=== PATIENT | female | born 1965 | race African-American/Black ===

== ENCOUNTER 2018-10-03 05:26 | Inpatient (IN) | payer MEDICARE, MEDICAID ==
[~2018-10-03 05:26] MED LIST: BUPIVACAINE INJ/PF LIPOSOME/PF 266 MG/20 ML SDV INJ PRN; CEFAZOLIN INJ 1 GM VIAL IV PRN; IBUPROFEN 800 MG in NORMAL SALINE 250 ML IV PRN; LACTATED RINGERS 1000 ML IV PRN; LIDOCAINE 0.5% INJ-PF (5 MG/ML) 50 ML SDV SUBCUT PRN; OXYCODONE HCL SR 10 MG TABLET PO PRN; PANTOPRAZOLE SODIUM 20 MG TABLET.DR PO PRN; VANCOMYCIN HCL 1,000 MG in DEXTROSE 5%-WATER 250 ML IV PRN
[2018-10-03] MEDS ORDERED: PANTOPRAZOLE SODIUM 20 MG TABLET.DR PO ONE (05:36)
[2018-10-03] MEDS ORDERED: OXYCODONE HCL SR 10 MG TABLET PO ONE (05:36)
[2018-10-03] MEDS ORDERED: CEFAZOLIN INJ 1 GM VIAL ONE (05:37)
[2018-10-03] MEDS ORDERED: MIDAZOLAM 2 MG/2 ML INJ ONE (06:53)
[2018-10-03] MEDS ORDERED: PROPOFOL INJ 200 MG/20 ML VIAL IV ONE (06:53)
[2018-10-03] MEDS ORDERED: TRANEXAMIC ACID INJ/PF 1,000 MG/10 ML SDV IV ONE ×3 (06:53→10:00)
[2018-10-03] MEDS ORDERED: ONDANSETRON HCL INJ/PF 4 MG/2 ML SDV ONE (06:53)
[2018-10-03] MEDS ORDERED: BUPIVACAINE HCL 0.25% /EPINEPHRINE INJ/PF 30 ML SDV ONE (07:09)
[2018-10-03] MEDS ORDERED: THROMBIN (BOVINE) TOPICAL 20000 UNIT VIAL ONE (07:09)
[2018-10-03] MEDS ORDERED: FENTANYL CITRATE INJ/PF 250 MCG/5 ML AMPULE ONE (07:16)
[2018-10-03] MEDS ORDERED: HYDROMORPHONE HCL INJ/PF 2 MG/ML AMPULE ONE (07:17)
[2018-10-03] MEDS ORDERED: MEPERIDINE HCL/PF INJ 25 MG/1 ML DISP.SYRIN IV PRN (07:46)
[2018-10-03] MEDS ORDERED: DIPHENHYDRAMINE HCL 50 MG/ML VIAL IV PRN ×2 (07:46→08:30)
[2018-10-03] MEDS ORDERED: FENTANYL CITRATE INJ/PF 100 MCG/2 ML AMPUL IV PRN ×3 (07:46)
[2018-10-03] MEDS ORDERED: PROMETHAZINE HCL INJ 25 MG/1 ML VIAL IV PRN (07:46)
[2018-10-03] MEDS ORDERED: MORPHINE SULFATE 10 MG/ML INJ IV PRN ×4 (07:46→08:30)
[2018-10-03] MEDS ORDERED: ONDANSETRON HCL INJ/PF 4 MG/2 ML SDV IV PRN (08:30)
[2018-10-03] MEDS ORDERED: RINGERS SOLUTION,LACTATED 1,000 ML IV PRN (08:30)
[2018-10-03] MEDS ORDERED: MAG HYDROX/AL HYDROX/SIMETH SUSP 30 ML UDCUP PO PRN (08:30)
[2018-10-03] MEDS ORDERED: ZOLPIDEM TARTRATE 5 MG TABLET PO PRN (08:30)
[2018-10-03] MEDS ORDERED: ONDANSETRON 4 MG TAB.RAPDIS PO PRN (08:30)
--- NOTE | 2018-10-03 08:36 | Operative Report ---
Operative Report DATE OF SURGERY: 10/03/18 PREOPERATIVE DIAGNOSIS: Left knee arthritis OPERATION: Left knee arthroplasty SURGEON: KRISTY POSEY ANESTHESIA: GA TISSUE REMOVED OR ALTERED: Bone to pathology ESTIMATED BLOOD LOSS: 150 cc secondary to tourniquet malfunction PROCEDURE: Implants used: Femur: [place] triathlon size 5 CR uncemented femur Tibia: Uncemented tibia, size 4 Tibial liner: 11 mm CS insert Patella: 38 mm oval patella, uncemented Procedure with the patient supine on the operating table the left the limb is prepped and draped in a sterile fashion. The limb was elevated for exsanguination and the tourniquet inflated to 280 torr. The patient had a previous lateral oblique infrapatellar incision presumably from an open lateral meniscectomy in the distant past. In light of this an exaggerated median parapatellar incision is made to avoid the previous incision. At the inferior aspect of this the distance between the 2 incisions is about 5 cm. The retinaculum was then entered and the knee exposed. Access is gained to the femoral canal through the intercondylar notch. Intramedullary alignment instrumentation used to resect 10 mm of distal femur in 5 of valgus. Sizing guide indicated a size 5 femur. Appropriate cutting jig is then used to fashion anterior posterior and chamfer cuts. A trial reduction femurs performed and this is judged to be adequate. Attention was next turned to the tibia. Using an extra medullary alignment system 9 millimeters was resected off the lateral tibial plateau. This is sized to a size 4 tibia. A trial reduction was now performed with a 5 femur and a 4 tibia using a 11 millimeters spacer. It is full extension and central patellofemoral tracking. The articular surface the patella was next resected using an oscillating saw. All trial implants were removed. And the final length plans are impacted into position. the tourniquet was deflated hemostasis obtained the wound is then closed in layers using interrupted Vicryl followed by jayme. A sterile compressive dressing was applied and the patient returned to recovery room in satisfactory condition.
[2018-10-03] MEDS: FENTANYL CITRATE INJ/PF 100 MCG/2 ML AMPUL ONE ×2 (09:30→09:35)
--- NOTE | 2018-10-03 09:55 | RADIOLOGY REPORT (SQ) ---
EXAM DESCRIPTION: KNEE LEFT 2 VIEWS COMPLETED DATE/TIME: 10/03/2018 9:25 am REASON FOR STUDY: Post OP -Long Cassette in PACU M17.12 UNILATERAL PRIMARY OSTEOARTHRITIS, LEFT KNE E COMPARISON: None. NUMBER OF VIEWS: Two view(s). TECHNIQUE: Digital radiographic images of the left knee post-procedure. LIMITATIONS: None. FINDINGS: BONES: No worrisome or unexpected findings post-procedure. DEVICE: Total knee arthroplasty. SOFT TISSUES: No worrisome findings. Expected postoperative soft tissue changes. IMPRESSION: SATISFACTORY POSTOPERATIVE LEFT KNEE. TECHNICAL DOCUMENTATION: JOB ID: [id number] [employer]- All Rights Reserved Reading location - IP/workstation name: [email or web address]
[2018-10-03] MEDS ORDERED: (PENDING PHARMACY ID) (Mirabegron [Myrbetriq] 50 MG) PO SCH (10:00)
[2018-10-03] MEDS ORDERED: PREGABALIN 75 MG CAPSULE PO SCH (10:00)
[2018-10-03] MEDS: MORPHINE SULFATE 10 MG/ML INJ IV PRN ×2 (10:37→19:55)
[2018-10-03] MEDS: PREGABALIN 75 MG CAPSULE PO SCH ×3 (10:40→22:26)
[2018-10-03] MEDS: PRENATAL VITAMIN W DHA CAPSULE PO SCH (10:40)
[2018-10-03] MEDS: HYDROCHLOROTHIAZIDE 12.5 MG TABLET PO SCH (10:40)
[2018-10-03] MEDS: AMLODIPINE BESYLATE 10 MG TABLET PO SCH (10:40)
[2018-10-03] MEDS: SENNOSIDES/DOCUSATE 8.6-50 MG 1 EACH TABLET PO SCH ×2 (10:41→17:30)
[2018-10-03] MEDS: VALSARTAN 160 MG TABLET PO SCH (10:42)
[2018-10-03] MEDS: ASPIRIN 81 MG TABLET, ENT COATED PO SCH (10:42)
[2018-10-03] MEDS: OXYCODONE HCL SR 10 MG TABLET PO SCH ×2 (10:43→22:31)
[2018-10-03] MEDS ORDERED: GLYCOPYRROLATE 1 MG/5 ML SYRINGE ONE (13:23)
[2018-10-03] MEDS ORDERED: PHENYLEPHRINE HCL INJ/PF 10 MG/1 ML SDV ONE (13:23)
[2018-10-03] MEDS ORDERED: DEXAMETHASONE SOD PHOSPHATE INJ 4 MG/1 ML VIAL ONE (13:23)
[2018-10-03] MEDS ORDERED: NEOSTIGMINE METHYLSULFATE 10 MG/10 ML VIAL ONE (13:23)
[2018-10-03] MEDS ORDERED: ROCURONIUM BROMIDE INJ 50 MG/5 ML VIAL IV ONE (13:23)
[2018-10-03] MEDS: OXYCODONE HCL IR 5 MG TABLET PO PRN (13:28)
[2018-10-03] MEDS: IBUPROFEN 800 MG in NORMAL SALINE 250 ML IV SCH (14:34)
[2018-10-03] MEDS: BACLOFEN 10 MG TABLET PO PRN (16:57)
[2018-10-03] MEDS ORDERED: VANCOMYCIN HCL 1,000 MG in DEXTROSE 5%-WATER 250 ML IV ONE (20:30)
[2018-10-04] MEDS: IBUPROFEN 800 MG in NORMAL SALINE 250 ML IV SCH ×4 (01:03→21:41)
[2018-10-04] MEDS: BACLOFEN 10 MG TABLET PO PRN (01:14)
[2018-10-04] MEDS: MORPHINE SULFATE 10 MG/ML INJ IV PRN ×2 (02:43→08:22)
[2018-10-04] MEDS: PANTOPRAZOLE SODIUM 40 MG TABLET.DR PO SCH (05:20)
[2018-10-04 06:04] LABS: HEMATOCRIT 31.5 % (36.0-47.0); HEMOGLOBIN 10.3 g/dL (12.0-15.5); MEAN CORPUSCULAR HEMOGLOBIN 26.5 pg (27.0-33.4); MEAN CORPUSCULAR HGB CONC 32.8 g/dL (32.0-36.0); MEAN CORPUSCULAR VOLUME 81 fl (80-97); PLATELET COUNT 305 10^3/uL (150-450); RED CELL DISTRIBUTION WIDTH 14.4 % (11.5-14.0); WHITE BLOOD COUNT 8.2 10^3/uL (4.0-10.5)
[2018-10-04 06:29] LABS: ANION GAP 13 (5-19); BLOOD UREA NITROGEN 17 mg/dL (7-20); CALCIUM 9.5 mg/dL (8.4-10.2); CARBON DIOXIDE 25 mmol/L (22-30); CHLORIDE 101 mmol/L (98-107); GLUCOSE 157 mg/dL (75-110); POTASSIUM 4.3 mmol/L (3.6-5.0); SODIUM 138.6 mmol/L (137-145)
--- NOTE | 2018-10-04 06:57 | PDOC PROGRESS REPORT ---
Subjective Progress Note for:: 10/04/18 Reason For Visit: M17.12 UNILATERAL PRIMARY OSTEOARTHRITIS, LEFT KNE 53-year-old black female status post left knee arthroplasty yesterday. Patient with ongoing complaints of pain and inability to sleep and rest. Limited progress with physical therapy yesterday. Physical Exam Vital Signs: Temp Pulse Resp BP Pulse Ox 36.9 C 91 17 103/73 100 10/03/18 22:56 10/03/18 22:56 10/03/18 22:56 10/03/18 22:56 10/03/18 22:56 Intake & Output 10/02/18 10/03/18 10/04/18 06:59 06:59 06:59 Intake Total 0 7811 Output Total 200 Balance 0 7611 Weight 141.9 kg Physical Exam: Obese middle-aged black female lying in bed. Patient with minor to moderate distress. Patient is alert, oriented, and appropriate. General appearance: PRESENT: mild distress, morbidly obese Head exam: PRESENT: normocephalic Respiratory exam: PRESENT: unlabored Cardiovascular exam: PRESENT: RRR Pulses: PRESENT: +1 pedal pulses bilateral Vascular exam: PRESENT: normal capillary refill GI/Abdominal exam: PRESENT: soft Rectal exam: PRESENT: deferred Extremities exam: PRESENT: other - Left lower extremity compressive dressings intact. Neurological exam: PRESENT: alert - Distal neurovascular examination is intact., awake, oriented to person, oriented to place, oriented to time, oriented to situation. ABSENT: motor sensory deficit Psychiatric exam: PRESENT: appropriate affect, normal mood. ABSENT: homicidal ideation, suicidal ideation Skin exam: PRESENT: dry, intact, warm. ABSENT: cyanosis, rash Results Laboratory Results: 10/04/18 05:18 10/04/18 05:18 10/04/18 10/04/18 05:18 05:18 WBC 8.2 RBC 3.90 Hgb 10.3 L Hct 31.5 L MCV 81 MCH 26.5 L MCHC 32.8 RDW 14.4 H Plt Count 305 Sodium 138.6 Potassium 4.3 Chloride 101 Carbon Dioxide 25 Anion Gap 13 BUN 17 Creatinine 1.38 H Est GFR ( Amer) 48 L Est GFR (Non-Af Amer) 40 L Glucose 157 H Calcium 9.5 Impressions: Knee X-Ray 10/03/18 08:32 IMPRESSION: SATISFACTORY POSTOPERATIVE LEFT KNEE. Status: Imported from PACS Assessment & Plan - Diagnosis (1) Arthritis of knee, left Is this a current diagnosis for this admission?: Yes Plan: Plan for ongoing physical therapy today and anticipate discharge home tomorrow with home health services and DME. - Time Time Spent with patient: 15-24 minutes Anticipated discharge: Home with Homehealth Within: within 24 hours
[2018-10-04] MEDS ORDERED: VALSARTAN PO SCH (10:00)
[2018-10-04] MEDS ORDERED: (PENDING PHARMACY ID) (Nitrofurantoin Macrocrystal [Macrodantin] 100 MG) PO SCH (10:00)
[2018-10-04] MEDS ORDERED: [UNRECOGNIZED DRUG - OTHER] PO SCH (10:00)
[2018-10-04] MEDS ORDERED: AMLODIPINE BESYLATE PO SCH (10:00)
[2018-10-04] MEDS: OXYCODONE HCL SR 10 MG TABLET PO SCH ×2 (11:16→21:41)
[2018-10-04] MEDS: ASPIRIN 81 MG TABLET, ENT COATED PO SCH (11:17)
[2018-10-04] MEDS: PREGABALIN 75 MG CAPSULE PO SCH ×2 (11:17→21:40)
[2018-10-04] MEDS: SENNOSIDES/DOCUSATE 8.6-50 MG 1 EACH TABLET PO SCH ×2 (11:17→17:31)
[2018-10-04] MEDS: PRENATAL VITAMIN W DHA CAPSULE PO SCH (11:17)
[2018-10-04] MEDS: HYDROCHLOROTHIAZIDE 12.5 MG TABLET PO SCH (11:17)
[2018-10-04] MEDS: AMLODIPINE BESYLATE 10 MG TABLET PO SCH ×2 (11:17→11:51)
[2018-10-04] MEDS: NITROFURANTOIN MONOHYD/M-CRYST 100 MG CAPSULE PO SCH (11:18)
[2018-10-04] MEDS: VALSARTAN 160 MG TABLET PO SCH ×2 (11:50→11:51)
[2018-10-05] MEDS: IBUPROFEN 800 MG in NORMAL SALINE 250 ML IV SCH ×3 (05:47→22:34)
[2018-10-05] MEDS: PANTOPRAZOLE SODIUM 40 MG TABLET.DR PO SCH (05:47)
[2018-10-05 06:10] LABS: HEMATOCRIT 28.3 % (36.0-47.0); HEMOGLOBIN 9.4 g/dL (12.0-15.5); MEAN CORPUSCULAR HEMOGLOBIN 26.7 pg (27.0-33.4); MEAN CORPUSCULAR HGB CONC 33.3 g/dL (32.0-36.0); MEAN CORPUSCULAR VOLUME 80 fl (80-97); PLATELET COUNT 289 10^3/uL (150-450); RED BLOOD COUNT 3.53 10^6/uL (3.72-5.28); WHITE BLOOD COUNT 8.1 10^3/uL (4.0-10.5)
--- NOTE | 2018-10-05 07:18 | PDOC PROGRESS REPORT ---
Subjective Progress Note for:: 10/05/18 Reason For Visit: M17.12 UNILATERAL PRIMARY OSTEOARTHRITIS, LEFT KNE 53-year-old black female postop day 2 status post left knee arthroplasty. Patient with limited progress with physical therapy yesterday. Physical Exam Vital Signs: Temp Pulse Resp BP Pulse Ox 36.8 C 102 H 14 83/50 L 95 10/04/18 23:20 10/04/18 23:20 10/04/18 23:20 10/04/18 23:20 10/04/18 23:20 Intake & Output 10/04/18 10/05/18 10/06/18 06:59 06:59 06:59 Intake Total 7811 2520 Output Total 200 Balance 7611 2520 Weight 141.9 kg 141.3 kg Physical Exam: Obese middle-aged black female lying in hospital bed complaining of being lightheaded. General appearance: PRESENT: no acute distress, obese Respiratory exam: PRESENT: unlabored Cardiovascular exam: PRESENT: RRR Pulses: PRESENT: +1 pedal pulses bilateral Vascular exam: PRESENT: normal capillary refill GI/Abdominal exam: PRESENT: soft Rectal exam: PRESENT: deferred Extremities exam: PRESENT: other - Dressing was changed on postop day 2. Wound is dry. [place] in place. Viability of skin edges the distal end of the incision appear adequate. Neurological exam: PRESENT: alert, awake, oriented to person, oriented to place, oriented to time, oriented to situation. ABSENT: motor sensory deficit Psychiatric exam: PRESENT: appropriate affect, normal mood. ABSENT: homicidal ideation, suicidal ideation Skin exam: PRESENT: dry, intact, warm. ABSENT: cyanosis, rash Results Laboratory Results: 10/05/18 05:05 10/04/18 05:18 10/05/18 05:05 WBC 8.1 RBC 3.53 L Hgb 9.4 L Hct 28.3 L MCV 80 MCH 26.7 L MCHC 33.3 RDW 14.0 Plt Count 289 Impressions: Knee X-Ray 10/03/18 08:32 IMPRESSION: SATISFACTORY POSTOPERATIVE LEFT KNEE. Status: Imported from PACS Assessment & Plan - Diagnosis (1) Arthritis of knee, left Is this a current diagnosis for this admission?: Yes Plan: Patient will continue to be mobilized with physical therapy and weightbearing as tolerated basis. Decision made yesterday that the patient will pursue placement in a senior care facility as a opposed to being discharged home. - Time Time Spent with patient: 15-24 minutes Anticipated discharge: SNF Within: within 24 hours
[2018-10-05] MEDS: AMLODIPINE BESYLATE 10 MG TABLET PO SCH ×2 (10:24→10:26)
[2018-10-05] MEDS: ASPIRIN 81 MG TABLET, ENT COATED PO SCH (10:24)
[2018-10-05] MEDS: HYDROCHLOROTHIAZIDE 12.5 MG TABLET PO SCH (10:25)
[2018-10-05] MEDS: PRENATAL VITAMIN W DHA CAPSULE PO SCH (10:25)
[2018-10-05] MEDS: VALSARTAN 160 MG TABLET PO SCH ×2 (10:25→10:26)
[2018-10-05] MEDS: PREGABALIN 75 MG CAPSULE PO SCH ×2 (10:26→22:34)
[2018-10-05] MEDS: SENNOSIDES/DOCUSATE 8.6-50 MG 1 EACH TABLET PO SCH ×2 (10:26→17:08)
[2018-10-05] MEDS: NITROFURANTOIN MONOHYD/M-CRYST 100 MG CAPSULE PO SCH (10:26)
[2018-10-05] MEDS: OXYCODONE HCL IR 5 MG TABLET PO PRN (22:29)
[2018-10-05] MEDS: ACETAMINOPHEN 325 MG TABLET PO PRN (22:30)
[2018-10-06] MEDS: PANTOPRAZOLE SODIUM 40 MG TABLET.DR PO SCH (05:53)
[2018-10-06 06:15] LABS: HEMATOCRIT 26.4 % (36.0-47.0); HEMOGLOBIN 8.9 g/dL (12.0-15.5); MEAN CORPUSCULAR HEMOGLOBIN 26.6 pg (27.0-33.4); MEAN CORPUSCULAR HGB CONC 33.6 g/dL (32.0-36.0); MEAN CORPUSCULAR VOLUME 79 fl (80-97); PLATELET COUNT 298 10^3/uL (150-450); RED BLOOD COUNT 3.33 10^6/uL (3.72-5.28); RED CELL DISTRIBUTION WIDTH 14.3 % (11.5-14.0); WHITE BLOOD COUNT 6.6 10^3/uL (4.0-10.5)
--- NOTE | 2018-10-06 06:49 | PDOC TRANSFER SUMMARY ---
General - Admit/Disc Date/PCP Admission Date/Primary Care Provider: 10/03/18 05:26 TRAM GARNER PA-C Discharge Date: 10/06/18 - Discharge Diagnosis (1) Arthritis of knee, left Is this a current diagnosis for this admission?: Yes - Additional Information Resuscitation Status: Full Code Home Medications: Meloxicam [Mobic] 7.5 mg PO DAILY 09/14/18 Amlodipine Besylate/Valsartan [Amlodipine-Valsartan 10-320 mg] 1 each PO DAILY 10/03/18 Baclofen [Baclofen 10 mg Tablet] 10 mg PO Q8HP PRN 10/03/18 Mirabegron [Myrbetriq] 25 mg PO DAILY 10/03/18 Nitrofurantoin Macrocrystal [Macrodantin] 100 mg PO DAILY MDD LAST DOSE 10/05/18 10/03/18 History of Present Illness Admission Date/PCP: 10/03/18 05:26 TRAM GARNER PA-C History of Present Illness: GILMER ORTEGA is a 53 year old female Patient is a 53-year-old black female with progressive left knee pain and functional disability. Patient is admitted for an elective left knee arthro plasty. Hospital Course Hospital Course: Patient is admitted through the operating where she undergoes uncomplicated left knee arthroplasty. She is returned to floor in satisfactory condition. Initially she makes little progress with physical therapy secondary to nausea and vomiting as well as lightheadedness. She subsequently had a dressing changed on postop day 2. The underlying wound is well approximated jayme. She makes some progress with physical therapy and postop day 2 but opts for fdc facility placement because of her home situation. Physical Exam Vital Signs: Temp Pulse Resp BP Pulse Ox 37.1 C 117 H 17 105/46 L 99 10/05/18 23:28 10/05/18 23:28 10/05/18 23:28 10/05/18 23:28 10/05/18 23:28 Intake & Output 10/04/18 10/05/18 10/06/18 06:59 06:59 06:59 Intake Total 7811 2520 1849 Output Total 200 Balance 7611 2520 1849 Weight 141.9 kg 141.3 kg 139 kg General appearance: PRESENT: no acute distress, mild distress, morbidly obese, obese Head exam: PRESENT: normocephalic Respiratory exam: PRESENT: unlabored Cardiovascular exam: PRESENT: RRR Pulses: PRESENT: +1 pedal pulses bilateral Vascular exam: PRESENT: normal capillary refill GI/Abdominal exam: PRESENT: soft Rectal exam: PRESENT: deferred Extremities exam: PRESENT: other - Left knee OpSite dressing clean dry and intact. There is no ecchymosis. There is minor induration. There is no erythema or drainage. Neurological exam: PRESENT: alert, awake, oriented to person, oriented to place, oriented to time, oriented to situation. ABSENT: motor sensory deficit Skin exam: PRESENT: dry, intact, warm. ABSENT: cyanosis, rash Results Laboratory Results: 10/06/18 05:15 10/04/18 05:18 10/06/18 05:15 WBC 6.6 RBC 3.33 L Hgb 8.9 L Hct 26.4 L MCV 79 L MCH 26.6 L MCHC 33.6 RDW 14.3 H Plt Count 298 Impressions: Knee X-Ray 10/03/18 08:32 IMPRESSION: SATISFACTORY POSTOPERATIVE LEFT KNEE. Status: Imported from PACS Transfer Plan - Disposition Transfer Plan: Patient be transferred to a fdc facility, [facility]. There is she can work on range of motion of the left knee, weightbearing sterile ambulation. Follow-up with Dr. Daniel and [facility] for surgery in 2 weeks for staple removal. - Time Spent with Patient Time spent with patient: Less than 30 Minutes Qualifiers - * PATIENT BEING DISCHARGED WITH ANY OF THE FOLLOWING DIAGNOSIS: No VTE patient discharged on overlapping Therapy?: Yes Acute Heart Failure Is this a Heart Failure Patient?: No Plan Discharge Plan: As above
[2018-10-06 08:21] VITALS: BP 101/54
[2018-10-06] MEDS: SENNOSIDES/DOCUSATE 8.6-50 MG 1 EACH TABLET PO SCH (10:23)
[2018-10-06] MEDS: PREGABALIN 75 MG CAPSULE PO SCH (10:23)
[2018-10-06] MEDS: ACETAMINOPHEN 325 MG TABLET PO PRN (10:29)
[2018-10-06] MEDS: OXYCODONE HCL IR 5 MG TABLET PO PRN (10:29)
[2018-10-06] MEDS: ASPIRIN 81 MG TABLET, ENT COATED PO SCH (10:29)
[2018-10-06] MEDS: AMLODIPINE BESYLATE 10 MG TABLET PO SCH (10:30)
[2018-10-06] MEDS: PRENATAL VITAMIN W DHA CAPSULE PO SCH (10:30)
[2018-10-06] MEDS: HYDROCHLOROTHIAZIDE 12.5 MG TABLET PO SCH (10:30)
[2018-10-06] MEDS: VALSARTAN 160 MG TABLET PO SCH (10:30)
== END 2018-10-06 13:40 | DRG 470 ==
LOC: INOR 05:26 → 4S 10:30
PROVIDERS: ADMIT Orthopaedic Surgery; ATTEND Orthopaedic Surgery
PROC: 0SRD0JA Replacement of Left Knee Joint with Synthetic Substitute, Uncemented, Open Approach (ICD-10-PCS; principal; 2018-10-03 07:30)
DX: M17.12 Unilateral primary osteoarthritis, left knee (principal); Z68.43 Body mass index [BMI] 50.0-59.9, adult; E66.01 Morbid (severe) obesity due to excess calories; I10 Essential (primary) hypertension; M54.5 Low back pain; Z91.041 Radiographic dye allergy status; Z79.899 Other long term (current) drug therapy; Z79.891 Long term (current) use of opiate analgesic; Z90.711 Acquired absence of uterus with remaining cervical stump; Z83.3 Family history of diabetes mellitus; Z82.49 Family history of ischemic heart disease and other diseases of the circulatory system
CPT/HCPCS: 01402; 36415; 80048; 84132; 85027; 88305; 88311; 94799; C1776; J0690; J1100; J1170; J1741; J2250; J2270; J2370; J2405; J2704; J2710; J3010; J3370; J3490; J7050; J7060; J7120; J8499